=== PATIENT | female | born 1980 | race African-American/Black ===

== ENCOUNTER 2019-07-26 17:03 | Emergency (ER) | payer MEDICAID ==
[~2019-07-26] VITALS: Ht 182.9 cm; Wt 100.0 kg
[~2019-07-26 17:03] MED LIST: PREN-88 PO; PREN1TAB23 PO
[2019-07-26] MEDS ORDERED: SODIUM CHLORIDE 0.9% 1,000 ML IV ONE ×2 (18:04→21:00)
[2019-07-26 18:35] LABS: BASOPHILS % 0.4 % (0.0-2.0); EOSINOPHILS % 5.8 % (0.0-5.0); HEMOGLOBIN. 12.5 g/dL (12.0-16.0); LYMPHOCYTES % 39.3 % (20.0-50.0); MEAN CORPUSCULAR HEMOGLOBIN 30.1 pg (28.0-32.0); MEAN PLATELET VOLUME 8.2 fl (7.4-10.4); MONOCYTES % 5.8 % (2.0-8.0); NEUTROPHILS % 48.7 % (40.0-76.0); PLATELET 278 x1000/uL (130-400); RED BLOOD CELL COUNT 4.15 mill/uL (4.2-5.4); RED CELL DISTRIBUTION WIDTH 14.2 % (11.6-14.6)
[2019-07-26 18:43] LABS: CHLORIDE 107 mEq/L (98-107)
[2019-07-26] MEDS ORDERED: KETOROLAC 15MG/ML VIAL IV ONE (19:00)
[2019-07-26 19:03] VITALS: BP 150/78
[2019-07-26] MEDS ORDERED: ASPIRIN 81MG TABLET PO ONE (20:45)
[2019-07-26] MEDS ORDERED: DIPHENHYDRAMINE 50MG/ML VIAL IV ONE (21:00)
[2019-07-26] MEDS ORDERED: METOCLOPRAMIDE HCL 10MG/2ML VIAL IV ONE (21:00)
[2019-07-26] MEDS ORDERED: POTASSIUM CHLORIDE 20MEQ TABLET SR PO ONE (22:00)
== END 2019-07-26 23:12 | disposition home or self-care (01) ==
LOC: ER 17:15
DX: R07.89 Other chest pain (principal); R06.02 Shortness of breath; R00.2 Palpitations; F17.290 Nicotine dependence, other tobacco product, uncomplicated; J45.909 Unspecified asthma, uncomplicated; E11.9 Type 2 diabetes mellitus without complications; Z90.49 Acquired absence of other specified parts of digestive tract
CPT/HCPCS: 36415; 71045; 80053; 81025; 83735; 83880; 84443; 84484; 85025; 93005; 96374; 96375; 99284; J1200; J1885; J2765; J7030; Z7610

== ENCOUNTER 2019-08-31 20:41 | Emergency (ER) | payer MEDICAID ==
[~2019-08-31] VITALS: Ht 182.9 cm; Wt 97.5 kg
[2019-08-31 22:23] LABS: CLARITY URINE CLEAR (CLEAR); COLOR URINE YELLOW (YELLOW); KETONES URINE NEGATIVE (NEGATIVE); LEUKOCYTE ESTERASE URINE NEGATIVE (NEGATIVE); NITRITE URINE NEGATIVE (NEGATIVE); OCCULT BLOOD URINE NEGATIVE (NEGATIVE); PH URINE 5.5 (4.5-8.0); PROTEIN URINE NEGATIVE (NEGATIVE); SPECIFIC GRAVITY URINE 1.017 (1.005-1.030)
[2019-08-31] MEDS ORDERED: SODIUM CHLORIDE 0.9% 1,000 ML IV ONE (23:14)
[2019-09-01 00:30] LABS: BASOPHILS % 1.4 % (0.0-2.0); CHLORIDE 101 mEq/L (98-107); HEMATOCRIT. 40.8 % (36.0-48.0); HEMOGLOBIN. 14.1 g/dL (12.0-16.0); LYMPHOCYTES % 37.5 % (20.0-50.0); MEAN CORPUSCULAR HEMOGLOBIN 30.1 pg (28.0-32.0); MEAN CORPUSCULAR VOLUME 87.4 fL (81.0-99.0); MEAN PLATELET VOLUME 8.4 fl (7.4-10.4); MONOCYTES % 6.9 % (2.0-8.0); NEUTROPHILS % 49.2 % (40.0-76.0); PLATELET 311 x1000/uL (130-400); RED BLOOD CELL COUNT 4.66 mill/uL (4.2-5.4); RED CELL DISTRIBUTION WIDTH 14.8 % (11.6-14.6)
[2019-09-01 00:33] LABS: PROTHROMBIN TIME 10.7 sec (9.6-11.0)
[2019-09-01] MEDS ORDERED: KETOROLAC 15MG/ML VIAL IV ONE (00:45)
[2019-09-01] MEDS ORDERED: BUTALBITAL/ACETAMINOPHEN/CAFFEINE 50/325/40MG TABLET PO NR (01:30)
[2019-09-01] MEDS ORDERED: POTASSIUM CHLORIDE 20MEQ TABLET SR PO NR (01:30)
[2019-09-01 01:55] VITALS: BP 127/74
== END 2019-09-01 01:55 | disposition home or self-care (01) ==
LOC: ER 20:41
DX: E87.6 Hypokalemia (principal); B34.9 Viral infection, unspecified; J45.909 Unspecified asthma, uncomplicated; R11.2 Nausea with vomiting, unspecified; I10 Essential (primary) hypertension; Z90.49 Acquired absence of other specified parts of digestive tract
CPT/HCPCS: 36415; 74176; 80053; 81003; 81025; 83690; 85025; 85610; 87804; 96361; 96374; 99284; J1885; J7030

== ENCOUNTER 2019-12-10 20:30 | Emergency (ER) | payer MEDICAID ==
[~2019-12-10] VITALS: Ht 182.9 cm; Wt 105.5 kg
[2019-12-10] MEDS ORDERED: MAGNESIUM/ALUMINUM HYDROXIDE/SIMETHICONE 30ML UDC PO STA (21:19)
[2019-12-10] MEDS ORDERED: VISCOUS LIDOCAINE 2% 15 ML UDC PO STA (21:19)
[2019-12-10] MEDS ORDERED: DICYCLOMINE 10 MG/5 ML ORAL SYR PO STA (21:19)
[2019-12-10 21:49] LABS: BASOPHILS % 0.8 % (0.0-2.0); EOSINOPHILS % 6.6 % (0.0-5.0); HEMOGLOBIN. 12.9 g/dL (12.0-16.0); LYMPHOCYTES % 35.1 % (20.0-50.0); MEAN CORPUSCULAR HEMOGLOBIN 30.8 pg (28.0-32.0); MEAN CORPUSCULAR VOLUME 88.2 fL (81.0-99.0); MEAN PLATELET VOLUME 8.3 fl (7.4-10.4); MONOCYTES % 8.3 % (2.0-8.0); NEUTROPHILS % 49.2 % (40.0-76.0); PLATELET 280 x1000/uL (130-400); RED CELL DISTRIBUTION WIDTH 13.9 % (11.6-14.6)
[2019-12-10 21:54] LABS: CHLORIDE 102 mEq/L (98-107)
[2019-12-10] MEDS ORDERED: POTASSIUM CHLORIDE 20MEQ TABLET SR PO ONE (22:15)
[2019-12-10] MEDS ORDERED: HYDROCODONE/ACETAMINOPHEN 5/325MG TABLET PO ONE (23:15)
[2019-12-10 23:59] LABS: CLARITY URINE CLOUDY (CLEAR); COLOR URINE YELLOW (YELLOW); KETONES URINE TRACE (NEGATIVE); LEUKOCYTE ESTERASE URINE 3+ (NEGATIVE); NITRITE URINE NEGATIVE (NEGATIVE); OCCULT BLOOD URINE NEGATIVE (NEGATIVE); PROTEIN URINE NEGATIVE (NEGATIVE); SPECIFIC GRAVITY URINE 1.019 (1.005-1.030); UROBILINOGEN URINE 0.2 E.U./dL (0.2-1.0)
[2019-12-11 00:32] VITALS: BP 130/71
== END 2019-12-11 00:34 | disposition home or self-care (01) ==
LOC: ER 20:30
DX: R10.33 Periumbilical pain (principal); E87.6 Hypokalemia; J45.909 Unspecified asthma, uncomplicated; I10 Essential (primary) hypertension; Z98.51 Tubal ligation status; Z88.6 Allergy status to analgesic agent
CPT/HCPCS: 36415; 74176; 80053; 81003; 81025; 85025; 99284

== ENCOUNTER 2020-01-06 17:52 | Emergency (ER) | payer MEDICAID ==
[~2020-01-06] VITALS: Ht 182.9 cm; Wt 107.0 kg
[2020-01-06] MEDS ORDERED: IBUPROFEN 600MG TABLET PO STA (18:28)
[2020-01-06 18:44] VITALS: BP 128/80
== END 2020-01-06 22:34 | disposition home or self-care (01) ==
LOC: ER 17:52
DX: Z03.818 Encounter for observation for suspected exposure to other biological agents ruled out (principal); R05 Cough; R07.89 Other chest pain; M79.18 Myalgia, other site; I10 Essential (primary) hypertension; J45.909 Unspecified asthma, uncomplicated
CPT/HCPCS: 71045; 81025; 93005; 99285; C9803; U0003

== ENCOUNTER 2020-03-08 21:06 | Inpatient (IN) | payer MEDICAID ==
[~2020-03-08] VITALS: Ht 182.9 cm; Wt 113.0 kg
[2020-03-08] MEDS ORDERED: SODIUM CHLORIDE 0.9% 1,000 ML IV ONE (21:34)
[2020-03-08 22:28] LABS: CHLORIDE 105 mEq/L (98-107)
[2020-03-08 22:29] LABS: BASOPHILS % 0.6 % (0.0-2.0); EOSINOPHILS % 6.7 % (0.0-5.0); HEMATOCRIT. 36.6 % (36.0-48.0); HEMOGLOBIN. 12.5 g/dL (12.0-16.0); LYMPHOCYTES % 36.5 % (20.0-50.0); MEAN CORPUSCULAR HEMOGLOBIN 29.6 pg (28.0-32.0); MEAN CORPUSCULAR VOLUME 86.5 fL (81.0-99.0); MEAN PLATELET VOLUME 8.7 fl (7.4-10.4); MONOCYTES % 7.4 % (2.0-8.0); NEUTROPHILS % 48.8 % (40.0-76.0); PLATELET 274 x1000/uL (130-400); RED BLOOD CELL COUNT 4.24 mill/uL (4.2-5.4); RED CELL DISTRIBUTION WIDTH 15.6 % (11.6-14.6)
[2020-03-08 22:30] LABS: HCG SCREEN NEGATIVE
[2020-03-08 22:33] LABS: ETHANOL BLOOD < 10 mg/dL
[2020-03-08 22:47] LABS: CARBAMAZEPINE < 0.5 ug/mL (4-12); PHENOBARBITAL < 2.1 ug/mL (15.0-40.0); VALPROIC ACID < 3.0 ug/mL (50-100)
[2020-03-08] MEDS ORDERED: HYDROCODONE/ACETAMINOPHEN 5/325MG TABLET PO ONE (23:00)
[2020-03-08] MEDS ORDERED: POTASSIUM CHLORIDE 20MEQ TABLET SR PO SCH (23:30)
[2020-03-08] MEDS ORDERED: LEVETIRACETAM 500MG PREMIX 100 ML IV ONE (23:30)
[2020-03-09] VITALS (7 sets, daily range): BP systolic 105–138; BP diastolic 58–93
[2020-03-09 00:51] LABS: CLARITY URINE CLEAR (CLEAR); COLOR URINE RED (YELLOW); KETONES URINE NEGATIVE (NEGATIVE); LEUKOCYTE ESTERASE URINE TRACE (NEGATIVE); NITRITE URINE NEGATIVE (NEGATIVE); OCCULT BLOOD URINE 3+ (NEGATIVE); PROTEIN URINE NEGATIVE (NEGATIVE)
[2020-03-09 01:14] LABS: *BARBITURATES SCREEN URINE NEGATIVE (NEGATIVE); *BENZODIAZEPINES SCREEN URINE NEGATIVE (NEGATIVE)
[2020-03-09 01:15] LABS: *AMPHETAMINES SCREEN URINE NEGATIVE (NEGATIVE); *COCAINE SCREEN URINE NEGATIVE (NEGATIVE); CANNABINOID URINE SCREEN NEGATIVE (NEGATIVE); METHADONE URINE SCREEN NEGATIVE (NEGATIVE); OPIATES URINE SCREEN NEGATIVE (NEGATIVE); PHENCYCLIDINE URINE SCREEN NEGATIVE (NEGATIVE)
[2020-03-09] MEDS ORDERED: LEVE1000 PO (03:19)
[2020-03-09] MEDS ORDERED: IBUP-2077 PO (03:19)
[2020-03-09] MEDS ORDERED: HYDR25TA PO (03:19)
[2020-03-09] MEDS ORDERED: CLONIDINE 0.1MG TABLET PO PRN (06:30)
[2020-03-09] MEDS ORDERED: ONDANSETRON HCL 4MG/2ML INJ IV PRN (06:30)
[2020-03-09] MEDS ORDERED: ACETAMINOPHEN 325MG TABLET PO PRN (06:30)
[2020-03-09] MEDS ORDERED: HYDROCODONE/ACETAMINOPHEN 5/325MG TABLET PO PRN (06:30)
[2020-03-09] MEDS: SODIUM CHLORIDE 0.45% 1,000 ML IV SCH ×2 (06:49→20:31)
[2020-03-09] MEDS: LORAZEPAM 2MG/ML CPJ IV PRN ×2 (08:53→20:41)
[2020-03-09] MEDS ORDERED: LEVETIRACETAM 500MG TABLET PO SCH (09:00)
[2020-03-09] MEDS ORDERED: MAGNESIUM/ALUMINUM HYDROXIDE/SIMETHICONE 30ML UDC PO PRN (09:00)
[2020-03-09] MEDS ORDERED: KETOROLAC 30MG/ML VIAL IV PRN (10:45)
[2020-03-09] MEDS: MORPHINE SULFATE 2 MG/ML CPJ (NOT FOR IM USE) IV PRN ×2 (12:36→17:49)
[2020-03-09] MEDS: LEVETIRACETAM 500MG TABLET PO SCH (17:43)
[2020-03-10 00:33] VITALS: BP 108/49
[2020-03-10] MEDS: MORPHINE SULFATE 2 MG/ML CPJ (NOT FOR IM USE) IV PRN ×2 (02:30→08:38)
[2020-03-10 04:00] VITALS: BP 98/54
[2020-03-10 06:43] LABS: CHLORIDE 104 mEq/L (98-107)
[2020-03-10 06:50] LABS: BASOPHILS % 0.5 % (0.0-2.0); EOSINOPHILS % 8.4 % (0.0-5.0); HEMATOCRIT. 31.4 % (36.0-48.0); HEMOGLOBIN. 10.6 g/dL (12.0-16.0); LYMPHOCYTES % 37.6 % (20.0-50.0); MEAN CORPUSCULAR HEMOGLOBIN 29.4 pg (28.0-32.0); MEAN CORPUSCULAR VOLUME 87.1 fL (81.0-99.0); MEAN PLATELET VOLUME 8.6 fl (7.4-10.4); MONOCYTES % 7.3 % (2.0-8.0); NEUTROPHILS % 46.2 % (40.0-76.0); PLATELET 260 x1000/uL (130-400); RED BLOOD CELL COUNT 3.61 mill/uL (4.2-5.4); RED CELL DISTRIBUTION WIDTH 15.4 % (11.6-14.6)
[2020-03-10 08:00] VITALS: BP 120/71
[2020-03-10] MEDS: LEVETIRACETAM 500MG TABLET PO SCH (08:29)
[2020-03-10] MEDS: SODIUM CHLORIDE 0.45% 1,000 ML IV SCH (08:29)
[2020-03-10] MEDS ORDERED: POTASSIUM CHLORIDE 20MEQ TABLET SR PO NR (11:15)
[2020-03-10] MEDS: LORAZEPAM 2MG/ML CPJ IV PRN (11:17)
[2020-03-10 11:26] VITALS: BP 140/97
[2020-03-10 12:00] VITALS: BP 140/97
== END 2020-03-10 12:47 | disposition home or self-care (01) | DRG 53 ==
LOC: ER 21:06 → 6WST 03-09 01:21 → ENRESERV 03-09 01:49
PROVIDERS: ADMIT Hospitalist; ATTEND Hospitalist
PROC: 4A00X4Z Measurement of Central Nervous Electrical Activity, External Approach (ICD-10-PCS; principal; 2020-03-10)
DX: G40.419 Other generalized epilepsy and epileptic syndromes, intractable, without status epilepticus (principal); E11.9 Type 2 diabetes mellitus without complications; I10 Essential (primary) hypertension; E87.6 Hypokalemia; J45.909 Unspecified asthma, uncomplicated; Z79.899 Other long term (current) drug therapy; Z88.6 Allergy status to analgesic agent
CPT/HCPCS: 36415; 71045; 80053; 80156; 80165; 80184; 80185; 80305; 80320; 81003; 82542; 83735; 84703; 85025; 93005; 95816; 99285; J1953; J2060; J2270; J7030; G0480

== ENCOUNTER 2020-09-08 04:15 | Emergency (ER) | payer MEDICAID ==
[~2020-09-08] VITALS: Ht 182.9 cm; Wt 105.0 kg
[~2020-09-08 04:15] MED LIST changes: +HYDR25TA PO; +IBUP-2077 PO; +LEVE1000 PO
[2020-09-08] MEDS ORDERED: KETOROLAC 60MG/2ML VIAL IM ONE (04:45)
[2020-09-08 04:46] LABS: CLARITY URINE CLEAR (CLEAR); COLOR URINE YELLOW (YELLOW); KETONES URINE NEGATIVE (NEGATIVE); LEUKOCYTE ESTERASE URINE TRACE (NEGATIVE); NITRITE URINE NEGATIVE (NEGATIVE); OCCULT BLOOD URINE NEGATIVE (NEGATIVE); PH URINE 5.5 (4.5-8.0); PROTEIN URINE NEGATIVE (NEGATIVE); SPECIFIC GRAVITY URINE 1.008 (1.005-1.030); UROBILINOGEN URINE 0.2 E.U./dL (0.2-1.0)
[2020-09-08 04:51] VITALS: BP 138/79
[2020-09-08] MEDS ORDERED: SULF1TAB48 MT ×2 (04:53→14:28)
[2020-09-08] MEDS ORDERED: PYR200 MT (04:53)
[2020-09-08] MEDS ORDERED: SULFAMETHOXAZOLE/TRIMETHOPRIM 800/160MG TABLET PO ONE (05:00)
== END 2020-09-08 05:04 | disposition home or self-care (01) ==
LOC: ER 04:15
DX: N12 Tubulo-interstitial nephritis, not specified as acute or chronic (principal); R03.0 Elevated blood-pressure reading, without diagnosis of hypertension
CPT/HCPCS: 81003; 96372; 99283; J1885

== ENCOUNTER 2020-11-30 17:29 | Emergency (ER) | payer MEDICAID ==
[~2020-11-30] VITALS: Ht 182.9 cm; Wt 102.0 kg
[~2020-11-30 17:29] MED LIST changes: +ATOR20TA MT; +IBUP-2030 MT; +METH-653 MT; +POTA8TAB4 PO; +PYR200 MT
[2020-11-30] MEDS ORDERED: FAMOTIDINE 20MG TABLET PO ONE (19:00)
[2020-11-30] MEDS ORDERED: MAGNESIUM/ALUMINUM HYDROXIDE/SIMETHICONE 30ML UDC PO ONE (19:00)
[2020-11-30] MEDS ORDERED: IBUPROFEN 600MG TABLET PO ONE (19:00)
[2020-11-30 19:39] LABS: BASOPHILS % 0.6 % (0.0-2.0); HEMATOCRIT. 36.3 % (36.0-48.0); HEMOGLOBIN. 12.6 g/dL (12.0-16.0); LYMPHOCYTES % 34.5 % (20.0-50.0); MEAN CORPUSCULAR HEMOGLOBIN 28.9 pg (28.0-32.0); MEAN CORPUSCULAR VOLUME 83.5 fL (81.0-99.0); MEAN PLATELET VOLUME 8.4 fl (7.4-10.4); MONOCYTES % 5.1 % (2.0-8.0); NEUTROPHILS % 53.8 % (40.0-76.0); PLATELET 295 x1000/uL (130-400); RED BLOOD CELL COUNT 4.35 mill/uL (4.2-5.4); RED CELL DISTRIBUTION WIDTH 16.2 % (11.6-14.6)
[2020-11-30 19:42] LABS: CHLORIDE 109 mEq/L (98-107)
[2020-11-30 19:43] LABS: HCG SCREEN NEGATIVE
[2020-11-30 20:06] LABS: CLARITY URINE CLEAR (CLEAR); COLOR URINE YELLOW (YELLOW); KETONES URINE NEGATIVE (NEGATIVE); LEUKOCYTE ESTERASE URINE 2+ (NEGATIVE); NITRITE URINE NEGATIVE (NEGATIVE); OCCULT BLOOD URINE NEGATIVE (NEGATIVE); PROTEIN URINE NEGATIVE (NEGATIVE); SPECIFIC GRAVITY URINE 1.017 (1.005-1.030)
[2020-11-30] MEDS ORDERED: FAMO-135 PO (21:51)
[2020-11-30 22:12] VITALS: BP 125/76
== END 2020-11-30 22:15 | disposition home or self-care (01) ==
LOC: ER 17:29
DX: R10.12 Left upper quadrant pain (principal); I10 Essential (primary) hypertension; J45.909 Unspecified asthma, uncomplicated; Z98.51 Tubal ligation status; Z88.5 Allergy status to narcotic agent; Z79.899 Other long term (current) drug therapy; Z90.49 Acquired absence of other specified parts of digestive tract; Z86.59 Personal history of other mental and behavioral disorders
CPT/HCPCS: 36415; 74176; 80053; 81003; 81025; 84703; 85025; 93005; 99285

== ENCOUNTER 2021-03-02 16:57 | Emergency (ER) | payer MEDICAID ==
[~2021-03-02] VITALS: Ht 182.9 cm; Wt 90.0 kg
[~2021-03-02 16:57] MED LIST changes: +FAMO-135 PO
[2021-03-02 17:06] VITALS: BP 136/76
== END 2021-03-02 18:58 | disposition left against medical advice (07) ==
LOC: ER 16:57
DX: Z53.21 Procedure and treatment not carried out due to patient leaving prior to being seen by health care provider (principal)

== ENCOUNTER 2021-05-13 15:43 | Emergency (ER) | payer MEDICAID ==
[~2021-05-13] VITALS: Ht 182.9 cm; Wt 109.0 kg
[2021-05-13 15:47] VITALS: BP 142/87
== END 2021-05-13 20:20 | disposition home or self-care (01) ==
LOC: ER 15:43
DX: G40.909 Epilepsy, unspecified, not intractable, without status epilepticus (principal)
CPT/HCPCS: 99283

== ENCOUNTER 2021-09-21 16:01 | Inpatient (IN) | payer MEDICAID ==
[~2021-09-21] VITALS: Ht 182.9 cm; Wt 88.9 kg
[2021-09-21] MEDS ORDERED: LEVETIRACETAM 500MG PREMIX 100 ML IV ONE (17:15)
[2021-09-21] MEDS ORDERED: SODIUM CHLORIDE 0.9% 1,000 ML IV ONE (17:15)
[2021-09-21 17:27] LABS: BASOPHILS % 0.5 % (0.0-2.0); EOSINOPHILS % 5.2 % (0.0-5.0); HEMATOCRIT. 34.6 % (36.0-48.0); HEMOGLOBIN. 11.9 g/dL (12.0-16.0); MEAN CORPUSCULAR HEMOGLOBIN 29.4 pg (28.0-32.0); MEAN CORPUSCULAR VOLUME 85.6 fL (81.0-99.0); MEAN PLATELET VOLUME 8.2 fl (7.4-10.4); MONOCYTES % 6.9 % (2.0-8.0); NEUTROPHILS % 56.4 % (40.0-76.0); PLATELET 294 x1000/uL (130-400); RED BLOOD CELL COUNT 4.05 mill/uL (4.2-5.4); RED CELL DISTRIBUTION WIDTH 15.4 % (11.6-14.6)
[2021-09-21 17:36] LABS: CHLORIDE 105 mEq/L (98-107)
[2021-09-21 17:42] LABS: HCG SCREEN NEGATIVE
[2021-09-21] MEDS ORDERED: POTASSIUM CHLORIDE 20MEQ TABLET SR PO ONE (18:30)
[2021-09-21] MEDS ORDERED: ASPIRIN 325MG EC TABLET PO ONE (19:45)
[2021-09-21 21:27] VITALS: BP 113/67
[2021-09-21 22:10] VITALS: BP 113/67
[2021-09-21] MEDS ORDERED: FERR325T6 MT (22:45)
[2021-09-21] MEDS ORDERED: LEVE500T19 MT (22:59)
[2021-09-21] MEDS ORDERED: METR-167 MT (22:59)
[2021-09-21] MEDS ORDERED: LISI10TA26 PO (22:59)
[2021-09-21] MEDS ORDERED: DOCU250C14 MT (22:59)
[2021-09-21] MEDS ORDERED: DOCUSATE SODIUM 250MG CAPSULE PO PRN (23:15)
[2021-09-21] MEDS ORDERED: DEXTROSE 50% WATER 50ML SYRINGE IV PRN (23:15)
[2021-09-21] MEDS ORDERED: NALOXONE HCL 0.4MG/ML VIAL IV PRN (23:30)
[2021-09-21] MEDS: HYDROCODONE/ACETAMINOPHEN 10/325MG TABLET PO PRN (23:51)
[2021-09-22] VITALS: BP 100/56
[2021-09-22] MEDS ORDERED: PNEUMOCOCCAL 23-VAL P-SAC VAC 0.5 ML IM ONE (02:00)
[2021-09-22 04:00] VITALS: BP 100/51
[2021-09-22] MEDS: INSULIN LISPRO 100 UNITS/ML SUBCUT SCH ×3 (06:28→16:34)
[2021-09-22] MEDS: BLOOD SUGAR DIAGNOSTIC STRIP TEST SCH ×3 (06:28→16:34)
[2021-09-22] MEDS: HYDROCODONE/ACETAMINOPHEN 10/325MG TABLET PO PRN (06:37)
[2021-09-22] MEDS: METRONIDAZOLE 500MG TABLET PO SCH ×2 (06:37→14:04)
[2021-09-22 08:00] VITALS: BP 116/49
[2021-09-22] MEDS ORDERED: *PATIENT'S OWN MEDICATION STORAGE XX SCH (08:30)
[2021-09-22] MEDS ORDERED: LISINOPRIL 10MG TABLET PO SCH (09:00)
[2021-09-22] MEDS ORDERED: LEVETIRACETAM 500MG TABLET PO SCH ×2 (09:00→21:00)
[2021-09-22 12:00] VITALS: BP 115/61
[2021-09-22] MEDS ORDERED: KETOROLAC 30MG/ML VIAL IV PRN (14:00)
[2021-09-22 16:00] VITALS: BP 108/58
[2021-09-22] MEDS ORDERED: LAMO25TA3 MT (17:13)
[2021-09-22] MEDS ORDERED: LAMOTRIGINE 25MG TABLET PO SCH (17:30)
[2021-09-22 18:06] LABS: *AMPHETAMINES SCREEN URINE NEGATIVE (NEGATIVE); *BARBITURATES SCREEN URINE NEGATIVE (NEGATIVE); *BENZODIAZEPINES SCREEN URINE NEGATIVE (NEGATIVE); *COCAINE SCREEN URINE NEGATIVE (NEGATIVE); METHADONE URINE SCREEN NEGATIVE (NEGATIVE)
[2021-09-22 18:07] LABS: CANNABINOID URINE SCREEN NEGATIVE (NEGATIVE); PHENCYCLIDINE URINE SCREEN NEGATIVE (NEGATIVE)
[2021-09-22 18:11] VITALS: BP 108/58
[2021-09-22 18:22] LABS: OPIATES URINE SCREEN PRESUMTIVE POSITIVE (NEGATIVE)
== END 2021-09-22 18:30 | disposition home or self-care (01) | DRG 53 ==
LOC: ER 16:01 → 7EST 19:38 → EDBEDREQ 20:00 → EDBEDREQTM 20:00 → ENRESERV 21:09
PROVIDERS: ADMIT Internal Medicine; ATTEND Internal Medicine
PROC: 3E0234Z Introduction of Serum, Toxoid and Vaccine into Muscle, Percutaneous Approach (ICD-10-PCS; principal; 2021-09-22)
DX: G40.909 Epilepsy, unspecified, not intractable, without status epilepticus (principal); E11.9 Type 2 diabetes mellitus without complications; E87.6 Hypokalemia; I10 Essential (primary) hypertension; J45.909 Unspecified asthma, uncomplicated; R55 Syncope and collapse; Z98.51 Tubal ligation status; Z88.5 Allergy status to narcotic agent; Z90.49 Acquired absence of other specified parts of digestive tract; Z23 Encounter for immunization; R94.31 Abnormal electrocardiogram [ECG] [EKG]
CPT/HCPCS: 36415; 71045; 80053; 80305; 82962; 83036; 84484; 84703; 85025; 86850; 86900; 90732; 93005; 99285; J1885; J1953; J7030

== ENCOUNTER 2022-01-13 17:07 | Emergency (ER) | payer MEDICAID ==
[~2022-01-13] VITALS: Ht 170.2 cm; Wt 109.0 kg
[~2022-01-13 17:07] MED LIST changes: +DOCU250C14 MT; +FERR325T6 MT; +LAMO25TA3 MT; +LEVE500T19 MT; +LISI10TA26 PO; -POTA8TAB4 PO; +POTA8TAB70 PO; -PYR200 MT
[2022-01-13] MEDS ORDERED: LEVETIRACETAM 1000MG PREMIX 100 ML IV ONE (17:45)
[2022-01-13] MEDS: LEVETIRACETAM 1000MG PREMIX 100 ML IV ONE ×3 (17:51→18:01)
[2022-01-13 17:56] LABS: BASOPHILS % 0.7 % (0.0-2.0); EOSINOPHILS % 6.9 % (0.0-5.0); HEMATOCRIT. 35.5 % (36.0-48.0); HEMOGLOBIN. 11.9 g/dL (12.0-16.0); LYMPHOCYTES % 45.7 % (20.0-50.0); MEAN CORPUSCULAR HEMOGLOBIN 30.7 pg (28.0-32.0); MEAN CORPUSCULAR VOLUME 91.6 fL (81.0-99.0); MEAN PLATELET VOLUME 8.1 fl (7.4-10.4); MONOCYTES % 6.8 % (2.0-8.0); NEUTROPHILS % 39.9 % (40.0-76.0); PLATELET 274 x1000/uL (130-400); RED BLOOD CELL COUNT 3.87 mill/uL (4.2-5.4)
[2022-01-13 17:58] LABS: CHLORIDE 104 mEq/L (98-107)
[2022-01-13 18:06] LABS: ETHANOL BLOOD < 10 mg/dL
[2022-01-13 18:17] LABS: HCG SCREEN NEGATIVE
[2022-01-13 18:50] LABS: *AMPHETAMINES SCREEN URINE NEGATIVE (NEGATIVE); *BARBITURATES SCREEN URINE NEGATIVE (NEGATIVE); *BENZODIAZEPINES SCREEN URINE NEGATIVE (NEGATIVE); *COCAINE SCREEN URINE NEGATIVE (NEGATIVE); CANNABINOID URINE SCREEN NEGATIVE (NEGATIVE); METHADONE URINE SCREEN NEGATIVE (NEGATIVE); PHENCYCLIDINE URINE SCREEN NEGATIVE (NEGATIVE)
[2022-01-13 18:58] LABS: OPIATES URINE SCREEN PRESUMTIVE POSITIVE (NEGATIVE)
[2022-01-13 19:27] LABS: CLARITY URINE CLEAR (CLEAR); COLOR URINE YELLOW (YELLOW)
[2022-01-13 19:28] LABS: KETONES URINE NEGATIVE (NEGATIVE); LEUKOCYTE ESTERASE URINE NEGATIVE (NEGATIVE); NITRITE URINE NEGATIVE (NEGATIVE); OCCULT BLOOD URINE NEGATIVE (NEGATIVE); PH URINE 7.5 (4.5-8.0); PROTEIN URINE NEGATIVE (NEGATIVE); SPECIFIC GRAVITY URINE 1.011 (1.005-1.030)
[2022-01-13] MEDS ORDERED: POTASSIUM CHLORIDE 20MEQ TABLET SR PO NR (19:29)
[2022-01-13] MEDS ORDERED: HYDROCODONE/ACETAMINOPHEN 10/325MG TABLET PO ONE (20:00)
[2022-01-13 21:30] VITALS: BP 115/72
== END 2022-01-13 20:10 | disposition home or self-care (01) ==
LOC: ER 17:07
DX: G40.909 Epilepsy, unspecified, not intractable, without status epilepticus (principal); I10 Essential (primary) hypertension; E11.9 Type 2 diabetes mellitus without complications; Z88.6 Allergy status to analgesic agent; Z79.899 Other long term (current) drug therapy
CPT/HCPCS: 36415; 80053; 80305; 80320; 81003; 81025; 84703; 85025; 96365; 99284; J1953; G0480

== ENCOUNTER 2022-04-19 21:42 | Emergency (ER) | payer MEDICAID ==
[~2022-04-19] VITALS: Ht 182.9 cm; Wt 106.3 kg
[2022-04-19 23:22] LABS: CLARITY URINE CLEAR (CLEAR); COLOR URINE YELLOW (YELLOW); KETONES URINE TRACE (NEGATIVE); LEUKOCYTE ESTERASE URINE 2+ (NEGATIVE); NITRITE URINE NEGATIVE (NEGATIVE); OCCULT BLOOD URINE NEGATIVE (NEGATIVE); PH URINE 6.5 (4.5-8.0); PROTEIN URINE NEGATIVE (NEGATIVE); SPECIFIC GRAVITY URINE 1.024 (1.005-1.030)
[2022-04-20] MEDS ORDERED: CEPH500C2 MT (02:57)
[2022-04-20] MEDS ORDERED: CEPHALEXIN 250MG CAPSULE PO ONE (03:00)
[2022-04-20 03:21] VITALS: BP 122/76
== END 2022-04-20 03:21 | disposition home or self-care (01) ==
LOC: ER 21:42
DX: N39.0 Urinary tract infection, site not specified (principal); E11.9 Type 2 diabetes mellitus without complications; J45.909 Unspecified asthma, uncomplicated; Z88.5 Allergy status to narcotic agent; Z98.51 Tubal ligation status; Z98.890 Other specified postprocedural states; Z79.899 Other long term (current) drug therapy; Z86.59 Personal history of other mental and behavioral disorders
CPT/HCPCS: 81003; 99283

== ENCOUNTER 2022-08-07 12:41 | Emergency (ER) | payer MEDICAID ==
[~2022-08-07] VITALS: Ht 182.9 cm; Wt 105.0 kg
[~2022-08-07 12:41] MED LIST changes: +CEPH500C2 MT; +IBUP-2028 MT; +MORP15TA67 MT; +TOPUD PO
[2022-08-07 13:06] VITALS: BP 135/77
[2022-08-07 15:23] LABS: CLARITY URINE CLEAR (CLEAR); COLOR URINE YELLOW (YELLOW); KETONES URINE TRACE (NEGATIVE); LEUKOCYTE ESTERASE URINE 1+ (NEGATIVE); NITRITE URINE NEGATIVE (NEGATIVE); OCCULT BLOOD URINE 3+ (NEGATIVE); PROTEIN URINE NEGATIVE (NEGATIVE); SPECIFIC GRAVITY URINE 1.014 (1.005-1.030)
[2022-08-07 15:58] LABS: BASOPHILS % 0.4 % (0.0-2.0); HEMATOCRIT. 35.9 % (36.0-48.0); HEMOGLOBIN. 12.1 g/dL (12.0-16.0); LYMPHOCYTES % 37.3 % (20.0-50.0); MEAN CORPUSCULAR HEMOGLOBIN 30.5 pg (28.0-32.0); MEAN CORPUSCULAR VOLUME 90.7 fL (81.0-99.0); MEAN PLATELET VOLUME 7.8 fl (7.4-10.4); MONOCYTES % 6.3 % (2.0-8.0); PLATELET 269 x1000/uL (130-400); RED BLOOD CELL COUNT 3.96 mill/uL (4.2-5.4); RED CELL DISTRIBUTION WIDTH 14.5 % (11.6-14.6)
[2022-08-07 16:14] LABS: CHLORIDE 107 mEq/L (98-107)
[2022-08-07 16:31] LABS: B-HCG QUANTITATIVE < 1 mIU/mL (<3)
[2022-08-07] MEDS ORDERED: MEDR10TA11 PO (17:07)
== END 2022-08-07 17:59 | disposition home or self-care (01) ==
LOC: ER 12:41
DX: D25.9 Leiomyoma of uterus, unspecified (principal); N93.9 Abnormal uterine and vaginal bleeding, unspecified; R74.02 Elevation of levels of lactic acid dehydrogenase [LDH]; J45.909 Unspecified asthma, uncomplicated; I10 Essential (primary) hypertension; Z90.49 Acquired absence of other specified parts of digestive tract; Z98.51 Tubal ligation status; Z79.899 Other long term (current) drug therapy
CPT/HCPCS: 36415; 76830; 76856; 80053; 81003; 81025; 84702; 85025; 99284

== ENCOUNTER 2022-10-21 12:59 | Emergency (ER) | payer MEDICAID ==
[~2022-10-21] VITALS: Ht 165.1 cm; Wt 80.0 kg
[~2022-10-21 12:59] MED LIST changes: +MEDR10TA11 PO
[2022-10-21 13:07] VITALS: BP 142/86
[2022-10-21 13:59] LABS: BASOPHILS % 0.6 % (0.0-2.0); EOSINOPHILS % 4.5 % (0.0-5.0); HEMATOCRIT. 35.3 % (36.0-48.0); HEMOGLOBIN. 12.2 g/dL (12.0-16.0); MEAN CORPUSCULAR HEMOGLOBIN 31.5 pg (28.0-32.0); MEAN CORPUSCULAR VOLUME 91.2 fL (81.0-99.0); MEAN PLATELET VOLUME 7.8 fl (7.4-10.4); NEUTROPHILS % 51.9 % (40.0-76.0); PLATELET 262 x1000/uL (130-400); RED BLOOD CELL COUNT 3.87 mill/uL (4.2-5.4); RED CELL DISTRIBUTION WIDTH 13.8 % (11.6-14.6)
[2022-10-21 14:02] LABS: CHLORIDE 108 mEq/L (98-107)
== END 2022-10-21 14:41 | disposition left against medical advice (07) ==
LOC: ER 12:59
DX: Z53.21 Procedure and treatment not carried out due to patient leaving prior to being seen by health care provider (principal)
CPT/HCPCS: 36415; 80053; 82962; 85025; 93005; 99281

== ENCOUNTER 2022-11-17 11:26 | Emergency (ER) | payer MEDICAID ==
[~2022-11-17] VITALS: Ht 182.9 cm; Wt 105.0 kg
[2022-11-17 12:06] LABS: BASOPHILS % 0.8 % (0.0-2.0); EOSINOPHILS % 5.4 % (0.0-5.0); HEMATOCRIT. 36.4 % (36.0-48.0); HEMOGLOBIN. 12.8 g/dL (12.0-16.0); LYMPHOCYTES % 40.3 % (20.0-50.0); MEAN CORPUSCULAR HEMOGLOBIN 31.8 pg (28.0-32.0); MEAN CORPUSCULAR VOLUME 90.6 fL (81.0-99.0); MEAN PLATELET VOLUME 7.9 fl (7.4-10.4); MONOCYTES % 9.1 % (2.0-8.0); NEUTROPHILS % 44.4 % (40.0-76.0); PLATELET 260 x1000/uL (130-400); RED BLOOD CELL COUNT 4.01 mill/uL (4.2-5.4); RED CELL DISTRIBUTION WIDTH 14.4 % (11.6-14.6)
[2022-11-17 12:17] LABS: CHLORIDE 107 mEq/L (98-107)
[2022-11-17] MEDS ORDERED: KETOROLAC 60MG/2ML VIAL IM ONE (13:30)
[2022-11-17] MEDS ORDERED: MORPHINE SULFATE 10 MG/ML CPJ IM ONE (13:30)
[2022-11-17] MEDS ORDERED: POTASSIUM CHLORIDE 20MEQ TABLET SR PO ONE (13:45)
[2022-11-17 14:24] LABS: HCG SCREEN NEGATIVE
[2022-11-17] MEDS ORDERED: MORPHINE SULFATE 10 MG/ML CPJ IM NR (15:45)
[2022-11-17] MEDS ORDERED: KETOROLAC 60MG/2ML VIAL IM NR (15:45)
[2022-11-17] MEDS ORDERED: POTASSIUM CHLORIDE 20MEQ TABLET SR PO NR (15:45)
[2022-11-17 16:32] LABS: CLARITY URINE CLEAR (CLEAR); COLOR URINE YELLOW (YELLOW); KETONES URINE NEGATIVE (NEGATIVE); LEUKOCYTE ESTERASE URINE TRACE (NEGATIVE); NITRITE URINE NEGATIVE (NEGATIVE); OCCULT BLOOD URINE 3+ (NEGATIVE); PROTEIN URINE NEGATIVE (NEGATIVE); SPECIFIC GRAVITY URINE 1.015 (1.005-1.030)
[2022-11-17] MEDS ORDERED: IBUP-2028 MT (17:05)
[2022-11-17] MEDS ORDERED: TOPUD PO (17:05)
[2022-11-17] MEDS ORDERED: MORP15TA67 MT (17:05)
[2022-11-17 17:24] VITALS: BP 135/74
== END 2022-11-17 17:30 | disposition home or self-care (01) ==
LOC: ER 11:26
DX: D21.9 Benign neoplasm of connective and other soft tissue, unspecified (principal); N93.9 Abnormal uterine and vaginal bleeding, unspecified; I10 Essential (primary) hypertension; J45.909 Unspecified asthma, uncomplicated; Z88.5 Allergy status to narcotic agent; Z79.899 Other long term (current) drug therapy; Z86.59 Personal history of other mental and behavioral disorders; Z90.49 Acquired absence of other specified parts of digestive tract; Z98.51 Tubal ligation status; Z98.890 Other specified postprocedural states
CPT/HCPCS: 36415; 76830; 76856; 80053; 81003; 81025; 84703; 85025; 86850; 86900; 86901; 96372; 99285; J1885; J2270; Z7610

== ENCOUNTER 2024-02-22 11:27 | Emergency (ER) | payer MEDICAID ==
[~2024-02-22] VITALS: Ht 180.3 cm; Wt 100.0 kg
[~2024-02-22 11:27] MED LIST changes: -IBUP-2030 MT; -LEVE500T19 MT; -LISI10TA26 PO; +LORA-249 PO; -METH-653 MT
[2024-02-22 11:34] VITALS: O2SAT 99
[2024-02-22] MEDS: LEVETIRACETAM 500MG TABLET PO ONE (12:17)
[2024-02-22] MEDS ORDERED: KEPP500 MT (12:57)
[2024-02-22 13:05] VITALS: BP 148/87; PULSE 90; RESP 18; TEMP 36.50292; O2SAT 99
== END 2024-02-22 13:21 | disposition home or self-care (01) ==
LOC: ER 11:27
DX: Z76.0 Encounter for issue of repeat prescription (principal); R56.9 Unspecified convulsions; J45.909 Unspecified asthma, uncomplicated; I10 Essential (primary) hypertension; Z90.710 Acquired absence of both cervix and uterus; Z90.49 Acquired absence of other specified parts of digestive tract; Z98.51 Tubal ligation status; Z79.899 Other long term (current) drug therapy; Z88.8 Allergy status to other drugs, medicaments and biological substances
CPT/HCPCS: 99283

== ENCOUNTER 2024-03-26 15:20 | Emergency (ER) | payer MEDICAID, OTHER ==
[~2024-03-26] VITALS: Ht 182.9 cm; Wt 86.0 kg
[~2024-03-26 15:20] MED LIST changes: +KEPP500 MT
[2024-03-26 15:27] VITALS: O2SAT 98
[2024-03-26 16:36] LABS: BASOPHILS % 0.7 % (0.0-2.0); EOSINOPHILS % 4.3 % (0.0-5.0); HEMATOCRIT. 37.8 % (36.0-48.0); HEMOGLOBIN. 13.3 g/dL (12.0-16.0); LYMPHOCYTES % 37.6 % (20.0-50.0); MEAN CORPUSCULAR HEMOGLOBIN 33.6 pg (28.0-32.0); MEAN CORPUSCULAR HGB CONC 35.1 g/dL (31.0-37.0); MEAN CORPUSCULAR VOLUME 95.7 fL (81.0-99.0); MEAN PLATELET VOLUME 8.6 fl (7.4-10.4); MONOCYTES % 9.9 % (2.0-8.0); NEUTROPHILS % 47.5 % (40.0-76.0); PLATELET 257 x1000/uL (130-400); RED BLOOD CELL COUNT 3.95 mill/uL (4.2-5.4); RED CELL DISTRIBUTION WIDTH 12.7 % (11.6-14.6); WHITE BLOOD COUNT 5.1 x1000/uL (4.5-11.0)
[2024-03-26 16:43] LABS: CARBON DIOXIDE 28 mEq/L (21-32); CHLORIDE 103 mEq/L (98-107); POTASSIUM 2.9 mEq/L (3.5-5.1); SODIUM 138 mEq/L (136-145)
[2024-03-26 16:48] LABS: CREATININE 0.9 mg/dL (0.6-1.0)
[2024-03-26 16:49] LABS: GLUCOSE 141 mg/dL (70-105); UREA NITROGEN BLOOD 6 mg/dL (9-23)
[2024-03-26 16:50] LABS: ALANINE AMINOTRANSFERASE 25 IU/L (10-49); ALBUMIN 4.4 g/dL (3.2-4.8); ASPARTATE AMINOTRANSFERASE 24 IU/L (<34)
[2024-03-26 16:51] LABS: BILIRUBIN DIRECT 0.4 mg/dL (<=3.0); BILIRUBIN TOTAL 1.3 mg/dL (0.1-1.0); PROTEIN TOTAL 7.5 g/dL (6.0-8.3)
[2024-03-26] MEDS: SODIUM CHLORIDE 0.9% 1,000 ML IV ONE (17:36)
[2024-03-26] MEDS: ONDANSETRON HCL 4MG/2ML INJ IV ONE (17:37)
[2024-03-26] MEDS: POTASSIUM CHLORIDE 20MEQ TABLET SR PO ONE (17:37)
[2024-03-26] MEDS: KETOROLAC 30MG/ML VIAL IV ONE (17:37)
[2024-03-26 18:25] LABS: HCG SCREEN NEGATIVE
[2024-03-26] MEDS ORDERED: LOPE2CAP MT (19:47)
[2024-03-26] MEDS ORDERED: ONDA-239 PO (19:47)
[2024-03-26] MEDS ORDERED: FAMO-135 MT (19:48)
[2024-03-26 20:23] LABS: CLARITY URINE CLEAR (CLEAR); COLOR URINE DARK YELLOW (YELLOW); GLUCOSE URINE NEGATIVE (NEGATIVE); KETONES URINE NEGATIVE (NEGATIVE); LEUKOCYTE ESTERASE URINE NEGATIVE (NEGATIVE); NITRITE URINE NEGATIVE (NEGATIVE); OCCULT BLOOD URINE NEGATIVE (NEGATIVE); PH URINE 6.5 (4.5-8.0); PROTEIN URINE NEGATIVE (NEGATIVE); SPECIFIC GRAVITY URINE 1.017 (1.005-1.030)
[2024-03-26 20:27] LABS: UCG KIT LOT# 847686; UCG SCREEN NEGATIVE
[2024-03-26 20:55] VITALS: BP 134/76; PULSE 98; RESP 18; TEMP 36.83628; O2SAT 98
[2024-03-26 21:09] LABS: BACTERIA URINE NONE SEEN; RBC URINE NONE SEEN /hpf (0-2); SQUAMOUS EPITHELIAL CELL URINE FEW /lpf (RARE/1+); WBC URINE 0-2 /hpf (0-2)
== END 2024-03-26 20:56 | disposition home or self-care (01) ==
LOC: ER 15:20
DX: A08.4 Viral intestinal infection, unspecified (principal); E87.6 Hypokalemia; G40.909 Epilepsy, unspecified, not intractable, without status epilepticus; J45.909 Unspecified asthma, uncomplicated; I10 Essential (primary) hypertension; Z79.899 Other long term (current) drug therapy; Z90.49 Acquired absence of other specified parts of digestive tract; Z90.710 Acquired absence of both cervix and uterus; Z98.51 Tubal ligation status; Z88.5 Allergy status to narcotic agent
CPT/HCPCS: 99285; 74176; 96374; 96361; 96375; 80076; 80048; 81003; 81025; 84703; 83690; 85025; 36415; 93005; J1885; J2405; J7030

== ENCOUNTER 2024-06-21 17:47 | Emergency (ER) | payer MEDICAID, OTHER ==
[~2024-06-21] VITALS: Ht 182.9 cm; Wt 109.0 kg
[~2024-06-21 17:47] MED LIST changes: +FAMO-135 MT; +LOPE2CAP MT; +ONDA-239 PO
[2024-06-21 18:11] VITALS: TEMP 98.5; O2SAT 100
[2024-06-21 20:24] LABS: BASOPHILS % 0.4 % (0.0-2.0); HEMATOCRIT. 38.4 % (36.0-48.0); HEMOGLOBIN. 12.8 g/dL (12.0-16.0); LYMPHOCYTES % 46.9 % (20.0-50.0); MEAN CORPUSCULAR HEMOGLOBIN 32.5 pg (28.0-32.0); MEAN CORPUSCULAR HGB CONC 33.4 g/dL (31.0-37.0); MEAN CORPUSCULAR VOLUME 97.4 fL (81.0-99.0); MEAN PLATELET VOLUME 8.3 fl (7.4-10.4); MONOCYTES % 7.9 % (2.0-8.0); NEUTROPHILS % 40.8 % (40.0-76.0); PLATELET 275 x1000/uL (130-400); RED BLOOD CELL COUNT 3.94 mill/uL (4.2-5.4); RED CELL DISTRIBUTION WIDTH 13.3 % (11.6-14.6); WHITE BLOOD COUNT 6.2 x1000/uL (4.5-11.0)
[2024-06-21 20:28] LABS: CHLORIDE 105 mEq/L (98-107); POTASSIUM 3.3 mEq/L (3.5-5.1); SODIUM 140 mEq/L (136-145)
[2024-06-21 20:29] LABS: CARBON DIOXIDE 29 mEq/L (21-32)
[2024-06-21 20:30] LABS: CALCIUM 9.1 mg/dL (8.7-10.4)
[2024-06-21 20:34] LABS: CREATININE 0.8 mg/dL (0.6-1.0); GLUCOSE 138 mg/dL (70-105); UREA NITROGEN BLOOD 6 mg/dL (9-23)
[2024-06-21 20:36] LABS: ALANINE AMINOTRANSFERASE 14 IU/L (10-49); ALBUMIN 4.3 g/dL (3.2-4.8); ASPARTATE AMINOTRANSFERASE 16 IU/L (<34)
[2024-06-21 20:37] LABS: BILIRUBIN DIRECT 0.2 mg/dL (<=3.0); BILIRUBIN TOTAL 0.9 mg/dL (0.1-1.0); PROTEIN TOTAL 7.4 g/dL (6.0-8.3)
[2024-06-21 21:14] LABS: CLARITY URINE CLEAR (CLEAR); COLOR URINE YELLOW (YELLOW); GLUCOSE URINE 1+ (NEGATIVE); KETONES URINE NEGATIVE (NEGATIVE); NITRITE URINE NEGATIVE (NEGATIVE); OCCULT BLOOD URINE NEGATIVE (NEGATIVE); PROTEIN URINE NEGATIVE (NEGATIVE); SPECIFIC GRAVITY URINE 1.014 (1.005-1.030); UROBILINOGEN URINE 1 E.U./dL (0.2-1.0)
[2024-06-21 21:15] LABS: LEUKOCYTE ESTERASE URINE NEGATIVE (NEGATIVE)
[2024-06-21 21:16] LABS: BACTERIA URINE TRACE; RBC URINE NONE SEEN /hpf (0-2); SQUAMOUS EPITHELIAL CELL URINE FEW /lpf (RARE/1+); WBC URINE NONE SEEN /hpf (0-2)
[2024-06-21 21:46] LABS: HCG SCREEN NEGATIVE
[2024-06-21 22:26] VITALS: BP 144/61; PULSE 109; RESP 16
[2024-06-21] MEDS: ONDANSETRON 4MG ODT PO ONE (22:26)
[2024-06-21] MEDS: KETOROLAC 30MG/ML VIAL IM ONE (22:26)
[2024-06-21 23:51] LABS: TROPONIN I HIGH SENSITIVITY < 4 ng/L (3.0-34)
== END 2024-06-22 01:05 | disposition home or self-care (01) ==
LOC: ER 17:47
DX: R10.31 Right lower quadrant pain (principal); I10 Essential (primary) hypertension; J45.909 Unspecified asthma, uncomplicated; G40.909 Epilepsy, unspecified, not intractable, without status epilepticus; Z90.49 Acquired absence of other specified parts of digestive tract; Z88.5 Allergy status to narcotic agent; Z79.899 Other long term (current) drug therapy; Z90.710 Acquired absence of both cervix and uterus; Z98.51 Tubal ligation status
CPT/HCPCS: 99285; 74176; 80076; 80048; 81003; 84703; 83690; 85025; 84484; 93005; 96372; 36415; Q0162; J1885

== ENCOUNTER 2024-10-09 12:48 | Emergency (ER) | payer MEDICAID, OTHER ==
[~2024-10-09] VITALS: Ht 182.9 cm; Wt 108.8 kg
[2024-10-09 13:03] VITALS: O2SAT 100
[2024-10-09 13:04] VITALS: O2SAT 99
[2024-10-09] MEDS ORDERED: LEVE1000 PO (13:29)
[2024-10-09] MEDS: LEVETIRACETAM 500MG TABLET PO ONE (13:40)
[2024-10-09 13:44] VITALS: BP 122/82; PULSE 86; RESP 14; TEMP 36.8
[2024-10-09] MEDS: ACETAMINOPHEN 500MG TABLET PO ONE (13:45)
== END 2024-10-09 13:48 | disposition home or self-care (01) ==
LOC: ER 12:58
DX: G40.909 Epilepsy, unspecified, not intractable, without status epilepticus (principal); I10 Essential (primary) hypertension; J45.909 Unspecified asthma, uncomplicated; Z76.0 Encounter for issue of repeat prescription; Z88.5 Allergy status to narcotic agent; Z79.899 Other long term (current) drug therapy; Z90.710 Acquired absence of both cervix and uterus; Z90.49 Acquired absence of other specified parts of digestive tract
CPT/HCPCS: 99283

== ENCOUNTER 2024-11-05 11:23 | Inpatient (IN) | payer MEDICAID, OTHER ==
[~2024-11-05] VITALS: Ht 182.9 cm; Wt 84.4 kg
[2024-11-05 12:21] LABS: BASOPHILS % 0.8 % (0.0-2.0); HEMATOCRIT. 37.7 % (36.0-48.0); HEMOGLOBIN. 13.2 g/dL (12.0-16.0); LYMPHOCYTES % 38.5 % (20.0-50.0); MEAN CORPUSCULAR HEMOGLOBIN 33.2 pg (28.0-32.0); MEAN CORPUSCULAR HGB CONC 35.1 g/dL (31.0-37.0); MEAN CORPUSCULAR VOLUME 94.6 fL (81.0-99.0); MEAN PLATELET VOLUME 8.7 fl (7.4-10.4); MONOCYTES % 5.6 % (2.0-8.0); NEUTROPHILS % 52.1 % (40.0-76.0); PLATELET 254 x1000/uL (130-400); RED BLOOD CELL COUNT 3.99 mill/uL (4.2-5.4); RED CELL DISTRIBUTION WIDTH 12.8 % (11.6-14.6); WHITE BLOOD COUNT 5.4 x1000/uL (4.5-11.0)
[2024-11-05 12:29] LABS: CHLORIDE 100 mEq/L (98-107); POTASSIUM 3.6 mEq/L (3.5-5.1); SODIUM 135 mEq/L (136-145)
[2024-11-05 12:30] LABS: CARBON DIOXIDE 25 mEq/L (21-32)
[2024-11-05 12:35] LABS: CREATININE 0.9 mg/dL (0.6-1.0); GLUCOSE 376 mg/dL (70-105); UREA NITROGEN BLOOD 7 mg/dL (9-23)
[2024-11-05] MEDS ORDERED: LACTATED RINGERS 1,000 ML IV SCH (12:45)
[2024-11-05] MEDS: DIPHENHYDRAMINE 50MG/ML VIAL IV ONE (13:00)
[2024-11-05] MEDS: METOCLOPRAMIDE HCL 10MG/2ML VIAL IV ONE (13:00)
[2024-11-05] MEDS: KETOROLAC 15MG/ML VIAL IV ONE (13:00)
[2024-11-05] MEDS: LACTATED RINGERS 1,000 ML IV SCH (13:04)
[2024-11-05 13:23] LABS: CLARITY URINE CLEAR (CLEAR); COLOR URINE YELLOW (YELLOW); GLUCOSE URINE 3+ (NEGATIVE); KETONES URINE NEGATIVE (NEGATIVE); LEUKOCYTE ESTERASE URINE NEGATIVE (NEGATIVE); NITRITE URINE NEGATIVE (NEGATIVE); OCCULT BLOOD URINE NEGATIVE (NEGATIVE); PH URINE 5.5 (4.5-8.0); PROTEIN URINE NEGATIVE (NEGATIVE); SPECIFIC GRAVITY URINE 1.027 (1.005-1.030); UROBILINOGEN URINE 0.2 E.U./dL (0.2-1.0)
[2024-11-05 13:39] LABS: RBC URINE 0-2 /hpf (0-2); SQUAMOUS EPITHELIAL CELL URINE 1+ /lpf (RARE/1+); WBC URINE 0-2 /hpf (0-2)
[2024-11-05 13:41] LABS: BACTERIA URINE FEW; YEAST URINE NONE SEEN
[2024-11-05] MEDS ORDERED: DOCUSATE SODIUM 250MG CAPSULE PO PRN (14:45)
[2024-11-05] MEDS ORDERED: CLONIDINE 0.1MG TABLET PO PRN (14:45)
[2024-11-05] MEDS ORDERED: DEXTROSE 50% WATER 50ML SYRINGE IV PRN (14:45)
[2024-11-05] MEDS ORDERED: NALOXONE HCL 0.4MG/ML VIAL IV PRN (15:15)
[2024-11-05 16:00] VITALS: BP 127/70; PULSE 79; RESP 18; TEMP 37.1; O2SAT 98
[2024-11-05] MEDS: SODIUM CHLORIDE 0.9% 1,000 ML IV SCH (16:02)
[2024-11-05 16:04] VITALS: BP 127/70; PULSE 76; RESP 18; TEMP 36.9
[2024-11-05] MEDS: BLOOD SUGAR DIAGNOSTIC STRIP TEST SCH (16:40)
[2024-11-05] MEDS: ENOXAPARIN 40MG/0.4ML SYR SUBCUT SCH (17:04)
[2024-11-05] MEDS: FERROUS SULFATE 325MG TABLET PO SCH (17:06)
[2024-11-05] MEDS: LEVETIRACETAM 500MG TABLET PO SCH (17:06)
[2024-11-05] MEDS: INSULIN LISPRO 100 UNITS/ML SUBCUT SCH (17:10)
[2024-11-05] MEDS: INSULIN GLARGINE 100 UNITS/ML SUBCUT SCH (18:35)
[2024-11-05 20:00] VITALS: BP 119/73; PULSE 87; RESP 18; TEMP 36.2; O2SAT 98
[2024-11-05] MEDS: ACETAMINOPHEN 325MG TABLET PO PRN (20:14)
[2024-11-05] MEDS: LAMOTRIGINE 25MG TABLET PO SCH (20:39)
[2024-11-05] MEDS ORDERED: LORAZEPAM 0.5MG TABLET PO PRN (21:00)
[2024-11-05] MEDS ORDERED: ZOLPIDEM TARTRATE 5MG TABLET PO PRN (21:00)
[2024-11-06] VITALS: BP 111/58; PULSE 78; RESP 18; TEMP 36.3; O2SAT 99
[2024-11-06] MEDS: HYDROCODONE/ACETAMINOPHEN 5/325MG TABLET PO PRN (02:07)
[2024-11-06 04:00] VITALS: BP 112/59; PULSE 76; RESP 18; TEMP 36.4; O2SAT 99
[2024-11-06 07:11] LABS: CARBON DIOXIDE 21 mEq/L (21-32); CHLORIDE 105 mEq/L (98-107); POTASSIUM 3.7 mEq/L (3.5-5.1); SODIUM 138 mEq/L (136-145)
[2024-11-06 07:12] LABS: CALCIUM 7.9 mg/dL (8.7-10.4)
[2024-11-06 07:15] LABS: CREATININE 0.6 mg/dL (0.6-1.0)
[2024-11-06 07:16] LABS: GLUCOSE 196 mg/dL (70-105)
[2024-11-06 07:17] LABS: UREA NITROGEN BLOOD < 5 mg/dL (9-23)
[2024-11-06 08:00] VITALS: BP 122/76; PULSE 85; RESP 19; TEMP 35.9; O2SAT 99
[2024-11-06] MEDS: PANTOPRAZOLE SODIUM 40 MG/VIAL IV SCH (09:48)
[2024-11-06] MEDS: ATORVASTATIN CALCIUM 20MG TABLET PO SCH (09:48)
[2024-11-06] MEDS: HYDROCHLOROTHIAZIDE 25MG TABLET PO SCH (09:48)
[2024-11-06] MEDS: ONDANSETRON HCL 4MG/2ML INJ IV PRN (09:59)
[2024-11-06] MEDS: INSULIN GLARGINE 100 UNITS/ML SUBCUT SCH (10:10)
[2024-11-06 12:00] VITALS: BP 124/68; PULSE 74; RESP 17; TEMP 35.9; O2SAT 100
[2024-11-06 12:43] LABS: BASOPHILS % 0.7 % (0.0-2.0); EOSINOPHILS % 4.5 % (0.0-5.0); HEMATOCRIT. 33.4 % (36.0-48.0); HEMOGLOBIN. 11.7 g/dL (12.0-16.0); LYMPHOCYTES % 46.1 % (20.0-50.0); MEAN CORPUSCULAR HEMOGLOBIN 33.4 pg (28.0-32.0); MEAN CORPUSCULAR HGB CONC 35.2 g/dL (31.0-37.0); MEAN CORPUSCULAR VOLUME 94.9 fL (81.0-99.0); MEAN PLATELET VOLUME 8.8 fl (7.4-10.4); MONOCYTES % 7.3 % (2.0-8.0); NEUTROPHILS % 41.4 % (40.0-76.0); PLATELET 220 x1000/uL (130-400); RED BLOOD CELL COUNT 3.52 mill/uL (4.2-5.4); RED CELL DISTRIBUTION WIDTH 12.9 % (11.6-14.6); WHITE BLOOD COUNT 4.5 x1000/uL (4.5-11.0)
[2024-11-06 12:58] LABS: *AMPHETAMINES SCREEN URINE NEGATIVE (NEGATIVE); *BARBITURATES SCREEN URINE NEGATIVE (NEGATIVE); *BENZODIAZEPINES SCREEN URINE NEGATIVE (NEGATIVE); *COCAINE SCREEN URINE NEGATIVE (NEGATIVE); CANNABINOID URINE SCREEN NEGATIVE (NEGATIVE); ECSTASY MDMA SCREEN URINE NEGATIVE (NEGATIVE); METHADONE URINE SCREEN NEGATIVE (NEGATIVE); OPIATES URINE SCREEN NEGATIVE (NEGATIVE); PHENCYCLIDINE URINE SCREEN NEGATIVE (NEGATIVE)
[2024-11-06] MEDS ORDERED: INSU100I28 SQ (14:23)
[2024-11-06 16:00] VITALS: BP 116/75; PULSE 87; RESP 18; TEMP 35.6; O2SAT 97
[2024-11-06] MEDS ORDERED: GLIP5TAB22 MT (16:20)
[2024-11-06 16:43] VITALS: BP 118/71; PULSE 72; TEMP 98.1; O2SAT 99
== END 2024-11-06 17:53 | disposition home or self-care (01) | DRG 54 ==
LOC: ER 11:23 → 7EST 13:47 → EDBEDREQTM 13:58 → EDBEDREQ 13:58
PROVIDERS: ADMIT Internal Medicine; ATTEND Internal Medicine
DX: G44.201 Tension-type headache, unspecified, intractable (principal); E11.65 Type 2 diabetes mellitus with hyperglycemia; E78.5 Hyperlipidemia, unspecified; G40.909 Epilepsy, unspecified, not intractable, without status epilepticus; I10 Essential (primary) hypertension; K59.00 Constipation, unspecified; J45.909 Unspecified asthma, uncomplicated; Z90.710 Acquired absence of both cervix and uterus; Z88.8 Allergy status to other drugs, medicaments and biological substances; Z90.49 Acquired absence of other specified parts of digestive tract; Z98.51 Tubal ligation status
CPT/HCPCS: 36415; 80048; 80305; 81003; 82962; 83036; 85025; 99285; J1200; J1650; J1815; J1885; J2405; J2470; J2765

== ENCOUNTER 2025-02-09 10:45 | Emergency (ER) | payer MEDICAID ==
[~2025-02-09] VITALS: Ht 182.9 cm; Wt 95.0 kg
[~2025-02-09 10:45] MED LIST changes: +AMLO5TAB88 PO; -CEPH500C2 MT; -FAMO-135 PO; +FERR-63 PO; +GLIP5TAB22 MT; -IBUP-2028 MT; +INSU100I28 SQ; -KEPP500 MT; -LEVE1000 PO; +LEVE100023 PO; -LOPE2CAP MT; -MEDR10TA11 PO; -MORP15TA67 MT; -ONDA-239 PO; -PREN-88 PO
[2025-02-09 10:49] VITALS: O2SAT 99
[2025-02-09 11:13] LABS: BASOPHILS % 0.7 % (0.0-2.0); EOSINOPHILS % 2.9 % (0.0-5.0); HEMATOCRIT. 37.2 % (36.0-48.0); HEMOGLOBIN. 13.2 g/dL (12.0-16.0); LYMPHOCYTES % 34.4 % (20.0-50.0); MEAN PLATELET VOLUME 8.2 fl (7.4-10.4); MONOCYTES % 5.4 % (2.0-8.0); NEUTROPHILS % 56.6 % (40.0-76.0); PLATELET 247 x1000/uL (130-400); RED BLOOD CELL COUNT 3.94 mill/uL (4.2-5.4); RED CELL DISTRIBUTION WIDTH 13.3 % (11.6-14.6)
[2025-02-09] MEDS: KETOROLAC 15MG/ML VIAL IV ONE (11:33)
[2025-02-09 11:38] LABS: CREATININE 0.9 mg/dL (0.6-1.0); UREA NITROGEN BLOOD 7 mg/dL (9-23)
[2025-02-09 11:40] LABS: ASPARTATE AMINOTRANSFERASE 11 IU/L (<34); BILIRUBIN DIRECT 0.4 mg/dL (<=3.0); BILIRUBIN TOTAL 1.3 mg/dL (0.1-1.0); PROTEIN TOTAL 7.3 g/dL (6.0-8.3)
[2025-02-09 11:53] LABS: CLARITY URINE CLEAR (CLEAR); COLOR URINE YELLOW (YELLOW); GLUCOSE URINE NEGATIVE (NEGATIVE); KETONES URINE NEGATIVE (NEGATIVE); LEUKOCYTE ESTERASE URINE NEGATIVE (NEGATIVE); NITRITE URINE NEGATIVE (NEGATIVE); OCCULT BLOOD URINE NEGATIVE (NEGATIVE); PH URINE 6.0 (4.5-8.0); PROTEIN URINE NEGATIVE (NEGATIVE); SPECIFIC GRAVITY URINE 1.016 (1.005-1.030); UROBILINOGEN URINE 1.0 E.U./dL (0.2-1.0)
[2025-02-09 13:00] VITALS: BP 130/78; PULSE 98; RESP 18; TEMP 36.8; O2SAT 99
== END 2025-02-09 13:06 | disposition home or self-care (01) ==
LOC: ER 10:45
DX: R10.9 Unspecified abdominal pain (principal); E11.9 Type 2 diabetes mellitus without complications; I10 Essential (primary) hypertension; J45.909 Unspecified asthma, uncomplicated; Z79.4 Long term (current) use of insulin; Z79.84 Long term (current) use of oral hypoglycemic drugs; Z79.899 Other long term (current) drug therapy; Z88.5 Allergy status to narcotic agent; Z90.49 Acquired absence of other specified parts of digestive tract; Z90.710 Acquired absence of both cervix and uterus
CPT/HCPCS: 99285; 74176; 96374; 80076; 80048; 81003; 81025; 82962; 83690; 85025; 36415; J1885